=== PATIENT | male | born 1955 | race Caucasian/White ===

== ENCOUNTER 2019-10-13 09:39 | Inpatient (IN) | payer MEDICARE, BC ==
[~2019-10-13] VITALS: Ht 180.3 cm; Wt 98.0 kg
[2019-10-13 10:54] LABS: BASOPHILS % (AUTO) 0.2 % (0-1); EOSINOPHILS # (AUTO) 0.2 X10'3 (0-0.9); HEMATOCRIT 37.8 % (42.0-52.0); HEMOGLOBIN 12.9 g/dl (14.0-17.9); LYMPHOCYTES # (AUTO) 0.9 X10'3 (1.1-4.8); LYMPHOCYTES % (AUTO) 11.9 % (21-51); MEAN CORPUSCULAR HEMOGLOBIN 31.2 PG (27.0-31.0); MEAN CORPUSCULAR HGB CONC 34.2 g/dL (33.0-36.5); MEAN CORPUSCULAR VOLUME 91.3 FL (78-98); MEAN PLATELET VOLUME 6.6 FL (7.4-10.4); MONOCYTES # (AUTO) 0.5 X10'3 (0-0.9); MONOCYTES % (AUTO) 6.7 % (2-12); NEUTROPHILS % (AUTO) 79.2 % (42-75); PLATELET COUNT 283 X10'3 (140-440); RED BLOOD COUNT 4.14 X10'6 (4.70-6.10); RED CELL DISTRIBUTION WIDTH 12.5 % (11.5-14.5); WHITE BLOOD COUNT 7.5 X10'3 (4.5-11.0)
--- NOTE | 2019-10-13 10:55 | NUR ---
PATIENT INSTRUCTED TO PROVIDE URINE SAMPLE AT THIS TIME PER MD ORDER. PATIENT STATES HE IS UNABLE TO VOID AT THIS TIME. AT BEDSIDE.
[2019-10-13] MEDS ORDERED: ampicillin/sulbac 3gm/NS 100ml 100 ML IV STA (11:05)
[2019-10-13] MEDS ORDERED: gentamicin inj 500 MG in normal saline 100ml IV soln 100 ML IV STA (11:05)
[2019-10-13] MEDS ORDERED: probenecid 500mg tablet PO ONE (11:05)
[2019-10-13 11:12] LABS: PARTIAL THROMBOPLASTIN TIME 29 SECONDS (22-32)
[2019-10-13 11:13] LABS: ALANINE AMINOTRANSFERASE 20 U/L (12-78); ALBUMIN 3.5 G/DL (3.4-5.0); ALBUMIN/GLOBULIN RATIO 0.9 (1.1-1.5); ALKALINE PHOSPHATASE 79 IU/L (46-116); ANION GAP 8 (8-16); ASPARTATE AMINO TRANSFERASE 12 U/L (10-37); BILIRUBIN,TOTAL 0.4 MG/DL (0.1-1.0); BLOOD UREA NITROGEN 19 MG/DL (7-18); BUN/CREATININE RATIO 19.4 (5.4-32.0); CALCIUM 9.1 MG/DL (8.5-10.1); CHLORIDE 101 MMOL/L (99-107); CREATININE 0.98 MG/DL (0.60-1.10); GLUCOSE 97 MG/DL (70-104); SODIUM 137 MMOL/L (135-145); TOTAL CARBON DIOXIDE 28.5 MMOL/L (24-32); TOTAL PROTEIN 7.5 G/DL (6.4-8.2); eGFR 77 ML/MIN
--- NOTE | 2019-10-13 11:22 | NUR ---
PER DR WONG OKAY TO RUN ZOSYN 4.5GM OVER 1 HR.
[2019-10-13] MEDS ORDERED: piperacillin/tazo 4.5gm/100ml IVPB IV ONE (11:25)
--- NOTE | 2019-10-13 12:31 | NUR ---
MRI SCREENING FORM FILLED OUT BY PATIENT.
--- NOTE | 2019-10-13 14:26 | NUR ---
relieving RN for break, pt is waiting for MRI results, c/o "burning to rt foot...like stepping on marbles or blaire toys..."family at bedside
[2019-10-13] MEDS ORDERED: OXYC-511 PO (15:11)
[2019-10-13] MEDS ORDERED: ATOR20TA66 PO (15:11)
[2019-10-13] MEDS ORDERED: LOSA1TAB41 PO (15:11)
[2019-10-13] MEDS ORDERED: DOXY-327 PO (15:11)
[2019-10-13] MEDS ORDERED: CELE200C PO (15:11)
[2019-10-13] MEDS ORDERED: MUPI22OI30 TOP (15:11)
[2019-10-13] MEDS ORDERED: CARI-433 PO (15:11)
[2019-10-13] MEDS ORDERED: PREG150C46 PO (15:11)
[2019-10-13] MEDS ORDERED: VENL150C58 PO (15:11)
[2019-10-13] MEDS ORDERED: TEST75GE10 TOP (15:11)
[2019-10-13] MEDS ORDERED: DICL100G30 TOP (15:11)
[2019-10-13] MEDS ORDERED: magnesium Cl slow-release 64mg tablet PO PRN (15:30)
[2019-10-13] MEDS ORDERED: morphine 2 MG/ML inj. syringe IV PRN ×2 (15:30)
[2019-10-13] MEDS ORDERED: LORazepam 2 mg/ml vial IV PRN (15:30)
[2019-10-13] MEDS ORDERED: ondansetron/PF 4mg/2ml inj IV PRN (15:30)
[2019-10-13] MEDS ORDERED: magnesium 4gm in 100ml NS 100 ML IV PRN (15:30)
[2019-10-13] MEDS ORDERED: potassium Cl 20 mEq SR tablet PO PRN ×2 (15:30)
[2019-10-13] MEDS ORDERED: potassium CL 10mEq/100ml bag 100 ML IV PRN ×2 (15:30)
[2019-10-13] MEDS ORDERED: LORazepam 1 MG tablet PO PRN (15:30)
[2019-10-13] MEDS ORDERED: acetaminophen 325mg tablet PO PRN ×2 (15:30)
[2019-10-13] MEDS ORDERED: HYDROcodone/acetaminophen 5mg/325mg tablet PO PRN (15:30)
[2019-10-13] MEDS ORDERED: magnesium 2GM in 50ml NS 50 ML IV PRN (15:30)
[2019-10-13] MEDS ORDERED: HYDR-3972 PO (15:31)
[2019-10-13] MEDS ORDERED: VENL75CA61 PO (15:43)
--- NOTE | 2019-10-13 16:09 | NUR ---
Patient in room ED 12. I have received report from Cora VASQUEZ and had the opportunity to ask questions and assume patient care.
[2019-10-13 16:30] VITALS: BP 147/87
[2019-10-13] MEDS: normal saline 1000ml 1,000 ML IV SCH (16:43)
[2019-10-13] MEDS: VANCOmycin 1250MG/NS 250ml Bag 250 ML IV SCH (17:08)
[2019-10-13] MEDS: HYDROcodone/acetaminophen 10/325mg tab PO PRN (17:09)
[2019-10-13] MEDS ORDERED: HYDROcodone/acetaminophen 10/325mg tab PO PRN (17:55)
[2019-10-13] MEDS ORDERED: insulin Lispro (HumaLOG) vial - multi-dose SQ SCH (17:55)
[2019-10-13] MEDS ORDERED: MESSAGE TO PHARMACY PO ONE (17:55)
[2019-10-13] MEDS ORDERED: glucagon, human recombinant 1mg kit SUBCUT PRN (17:55)
[2019-10-13] MEDS ORDERED: dextrose 50%-water 50ml dispensing syringe IV PRN ×2 (17:55)
[2019-10-13] MEDS ORDERED: dextrose ORAL solution 15 GM/59 ML bottle PO PRN ×2 (17:55)
[2019-10-13 18:00] VITALS: BP 149/93
--- NOTE | 2019-10-13 18:18 | NUR ---
Problems reprioritized. Patient report given, questions answered & plan of care reviewed with Prudence RN.
--- NOTE | 2019-10-13 18:39 | NUR ---
Patient in room ORTHO 4021. I have received report from Solomon VASQUEZ and had the opportunity to ask questions and assume patient care. patient is in the room with his spouse. No sign of distress.
[2019-10-13] MEDS: docusate sod 100mg capsule PO SCH (19:49)
[2019-10-13] MEDS: celeCOXIB 100mg capsule PO SCH (19:49)
[2019-10-13] MEDS: heparin, porcine 5000 units/ml vial SQ SCH (19:50)
[2019-10-13] MEDS ORDERED: temazepam 15mg capsule PO PRN ×2 (19:50→21:00)
[2019-10-13] MEDS ORDERED: gadobutrol 10mmol/10ml inj. IV ONE (20:04)
[2019-10-13 20:53] LABS: HEMOGLOBIN A1C 5.2 % (4.5-6.2)
[2019-10-13] MEDS ORDERED: insulin glargine (Lantus) pen - multi-dose SQ SCH (21:00)
[2019-10-13] MEDS ORDERED: VOLTAREN 1% TOP PRN (21:00)
--- NOTE | 2019-10-13 21:58 | NUR ---
Patient refused to have his blood glucose checked per ETOH protocol. Patient was educated. Addendum: 10/13/19 at 2201 by Gracie Ballard RN Amended: Links added.
[2019-10-13 22:00] VITALS: BP 109/51
[2019-10-14] MEDS: VANCOmycin 1250MG/NS 250ml Bag 250 ML IV SCH ×2 (05:01→16:23)
[2019-10-14] MEDS: normal saline 1000ml 1,000 ML IV SCH (05:05)
[2019-10-14 06:00] VITALS: BP 119/70
[2019-10-14 06:03] LABS: BASOPHILS % (AUTO) 0.1 % (0-1); EOSINOPHILS # (AUTO) 0.2 X10'3 (0-0.9); EOSINOPHILS % (AUTO) 5.3 % (0-6); HEMATOCRIT 36.2 % (42.0-52.0); HEMOGLOBIN 12.3 g/dl (14.0-17.9); LYMPHOCYTES # (AUTO) 1.3 X10'3 (1.1-4.8); LYMPHOCYTES % (AUTO) 31.2 % (21-51); MEAN CORPUSCULAR HEMOGLOBIN 31.4 PG (27.0-31.0); MEAN CORPUSCULAR HGB CONC 34.1 g/dL (33.0-36.5); MEAN CORPUSCULAR VOLUME 92.2 FL (78-98); MEAN PLATELET VOLUME 6.7 FL (7.4-10.4); MONOCYTES # (AUTO) 0.5 X10'3 (0-0.9); MONOCYTES % (AUTO) 11.5 % (2-12); NEUTROPHILS # (AUTO) 2.2 X10'3 (1.8-7.7); NEUTROPHILS % (AUTO) 51.9 % (42-75); PLATELET COUNT 255 X10'3 (140-440); RED BLOOD COUNT 3.92 X10'6 (4.70-6.10); RED CELL DISTRIBUTION WIDTH 12.2 % (11.5-14.5); WHITE BLOOD COUNT 4.3 X10'3 (4.5-11.0)
--- NOTE | 2019-10-14 06:22 | NUR ---
Problems reprioritized. Patient report given, questions answered & plan of care reviewed with Solomon VASQUEZ.Patient had a good night sleep and denied having pain.
--- NOTE | 2019-10-14 06:25 | NUR ---
Patient in room ORTHO 4018. I have received report from Gracie VASQUEZ and had the opportunity to ask questions and assume patient care.
[2019-10-14 06:26] LABS: ALANINE AMINOTRANSFERASE 15 U/L (12-78); ALBUMIN 2.9 G/DL (3.4-5.0); ALBUMIN/GLOBULIN RATIO 0.8 (1.1-1.5); ALKALINE PHOSPHATASE 66 IU/L (46-116); ANION GAP 5 (8-16); ASPARTATE AMINO TRANSFERASE 13 U/L (10-37); BILIRUBIN,TOTAL 0.3 MG/DL (0.1-1.0); BLOOD UREA NITROGEN 25 MG/DL (7-18); BUN/CREATININE RATIO 22.1 (5.4-32.0); CALCIUM 8.8 MG/DL (8.5-10.1); CHLORIDE 106 MMOL/L (99-107); CREATININE 1.13 MG/DL (0.60-1.10); GLUCOSE 98 MG/DL (70-104); MAGNESIUM 1.9 MG/DL (1.5-2.4); POTASSIUM 4.5 MMOL/L (3.5-5.1); SODIUM 142 MMOL/L (135-145); TOTAL PROTEIN 6.5 G/DL (6.4-8.2); eGFR 65 ML/MIN
[2019-10-14] MEDS: celeCOXIB 100mg capsule PO SCH (07:38)
[2019-10-14] MEDS: docusate sod 100mg capsule PO SCH (07:38)
[2019-10-14] MEDS: heparin, porcine 5000 units/ml vial SQ SCH (07:40)
[2019-10-14] MEDS: HYDROcodone/acetaminophen 10/325mg tab PO PRN ×3 (07:48→16:23)
[2019-10-14] MEDS ORDERED: pregabalin 75mg capsule PO SCH (08:00)
[2019-10-14] MEDS ORDERED: HYDROchlorothiazide 12.5mg capsule PO SCH (08:00)
[2019-10-14] MEDS ORDERED: mupirocin 2% ointment 22GM TP SCH (08:00)
[2019-10-14] MEDS ORDERED: losartan 50mg tablet PO SCH (08:00)
[2019-10-14] MEDS ORDERED: K and/or MAG REPLACEMENT MC SCH (08:00)
[2019-10-14] MEDS ORDERED: atorvastatin 20mg tablet PO SCH (08:00)
[2019-10-14] MEDS ORDERED: venlafaxine XR 75mg capsule (Q24H) PO SCH (08:00)
[2019-10-14] MEDS ORDERED: rifampin 300mg capsule PO SCH (08:25)
--- NOTE | 2019-10-14 08:30 | NUR ---
Re: [id number] Gee Finney. needs picc line placed. thank you
[2019-10-14 10:00] VITALS: BP 130/82
--- NOTE | 2019-10-14 17:38 | NUR ---
Safe DC. all personal items with patient.
[2019-10-15] MEDS ORDERED: VANCOMYCIN LEVEL IV ONE (04:30)
== END 2019-10-14 17:35 | disposition home or self-care (01) | DRG 863 ==
LOC: ER 09:39 → ED HOLD 15:27 → ORTHO 4S 16:30
PROVIDERS: ADMIT Internal Medicine; ATTEND Internal Medicine
PROC: BQ3LYZZ Magnetic Resonance Imaging (MRI) of Right Foot using Other Contrast (ICD-10-PCS; principal; 2019-10-13)
PROC: 02HV33Z Insertion of Infusion Device into Superior Vena Cava, Percutaneous Approach (ICD-10-PCS; 2019-10-14)
PROC: B548ZZA Ultrasonography of Superior Vena Cava, Guidance (ICD-10-PCS; 2019-10-14)
DX: T81.40XA Infection following a procedure, unspecified, initial encounter (principal); M86.8X7 Other osteomyelitis, ankle and foot; E11.69 Type 2 diabetes mellitus with other specified complication; L03.031 Cellulitis of right toe; E78.5 Hyperlipidemia, unspecified; I10 Essential (primary) hypertension; Y83.8 Other surgical procedures as the cause of abnormal reaction of the patient, or of later complication, without mention of misadventure at the time of the procedure; F32.9 Major depressive disorder, single episode, unspecified; G89.4 Chronic pain syndrome; Z96.641 Presence of right artificial hip joint; Z88.5 Allergy status to narcotic agent; Y92.89 Other specified places as the place of occurrence of the external cause
CPT/HCPCS: 36415; 36569; 71045; 73630; 73720; 76937; 80053; 83036; 83605; 83735; 84145; 85025; 85610; 85651; 85730; 86140; 87040; 87070; 87081; 96365; 96368; 97116; 97161; 97530; 99285; A9585; G0378; J0295; J1580; J1644; J1815; J2543; J3370; J7030